=== PATIENT | female | born 1985 | race Caucasian/White ===

== ENCOUNTER 2021-02-08 21:32 | Emergency (ER) | payer OTHER ==
[~2021-02-08] VITALS: Ht 152.4 cm; Wt 61.4 kg
[2021-02-08 21:33] VITALS: TEMP 98.3
[2021-02-08 21:53] LABS: BASO # 0.1 (0.0-0.2); BASO % 0.8 % (0.0-2.0); EOS # 0.2 (0.0-0.7); EOS % 3.2 % (0-4.0); GRAN # 3.4 (1.4-6.5); GRAN % 44.9 % (42.2-75.2); HEMATOCRIT 41.2 % (37.0-47.0); HEMOGLOBIN 14.3 g/dl (12.5-16.0); LYMPH # 3.1 (1.2-3.4); MEAN CELL VOLUME 89 fl (80.0-100.0); MEAN CORPUSCULAR HEMOGLOBIN 31 pg (27.0-31.0); MEAN CORPUSCULAR HGB CONC 35 g/dl (33.0-37.0); MEAN PLATELET VOLUME 10.7 fl (7.4-10.4); MONO # 0.8 (0.1-0.6); PLATELET COUNT 237 K/mm3 (130-400); RED BLOOD COUNT 4.61 M/mm3 (4.10-5.30); REDCELL DISTRIBUTION WIDTH-CV 11.9 % (11.5-14.5)
[2021-02-08 22:00] LABS: ALANINE AMINOTRANSFERASE 10 U/L (4-34); ALBUMIN 4.7 gm/dL (3.5-5.0); ALKALINE PHOSPHATASE 61 U/L (50-136); ANION GAP 14 mmol/L (7-16); AST,SGOT 33 U/L (15-37); BILIRUBIN,TOTAL < 0.1 mg/dL (0.0-1.0); BLOOD UREA NITROGEN 10 mg/dL (7-17); CARBON DIOXIDE 21 mmol/L (22-30); CHLORIDE 104 mmol/L (98-107); CREATININE, serum 0.66 (0.52-1.25); GLUCOSE 149 mg/dL (74-106); POTASSIUM 3.1 mmol/L (3.4-5.0); SODIUM 139 mmol/L (137-145); TOTAL PROTEIN 8.1 gm/dL (6.4-8.2)
[2021-02-08 22:08] LABS: ALCOHOL(ethanol),MEDICAL 375 mg/dL
[2021-02-08 23:13] VITALS: BP 111/83; PULSE 96
== END 2021-02-08 23:13 | disposition home or self-care (01) ==
LOC: COL.ER 21:32
PROVIDERS: Nurse Practitioner Family
DX: F10.121 Alcohol abuse with intoxication delirium (principal); E87.6 Hypokalemia; E10.9 Type 1 diabetes mellitus without complications; Y90.8 Blood alcohol level of 240 mg/100 ml or more
CPT/HCPCS: J3411; J7030